=== PATIENT | female | born 1975 | race American Indian/Alaskan Native ===

== ENCOUNTER 2017-10-08 08:21 | Day surgery (SDC) | payer MEDICARE ==
[2017-10-08] MEDS ORDERED: NACL 0.9% 1000 ML 1,000 ML ONE (08:30)
[2017-10-08] MEDS ORDERED: NACL 0.9% 1000 ML 1,000 ML IV SCH (09:00)
[2017-10-08] MEDS ORDERED: HumuLIN R ONE (09:35)
--- NOTE | 2017-10-08 09:59 | Anesthesia Day of Surgery ---
Anesthesia Day of Surgery - Day of Surgery Patient Examined: Yes Patient H&P Reviewed: Yes Patient is NPO: Yes
--- NOTE | 2017-10-08 10:00 | Anesthesia Consultation ---
Anesthesia Consult and Med Hx Date of service: 10/08/17 - Airway Anesthetic Teeth Evaluation: Poor ROM Head & Neck: Adequate Mental/Hyoid Distance: Adequate Mallampati Class: Class III Intubation Access Assessment: Possibly Difficult - Pulmonary Exam CTA: Yes - Cardiac Exam Cardiac Exam: RRR - Pre-Operative Health Status ASA Pre-Surgery Classification: ASA3 Proposed Anesthetic Plan: General - Pulmonary Hx Smoking: No - Cardiovascular System Hx Hypertension: Yes - Central Nervous System Hx Psychiatric Problems: No - Other Systems Hx Cancer: No
[2017-10-08] MEDS ORDERED: DIPRIVAN 10 MG/ML IV ONE ×3 (10:22)
[2017-10-08] MEDS ORDERED: WATER FOR IRRIG STERILE IR ONE (10:44)
--- NOTE | 2017-10-08 10:45 | Short Stay Summary ---
Short Stay Documentation Date of service: 10/08/17 Narrative H&P: The patient presents for colonoscopy for FH of colon cancer, mother. No prior studies. - History Past Medical History: diabetes, hypertension, other (obesity, lupus) Past Surgical History: Social history: no significant social history - Allergies and Medications Current Medications: Allergies No Known Allergies Allergy (Unverified 10/08/17 08:21) Active Medications Sodium Chloride (Nacl 0.9% 1000 Ml) 1,000 mls @ 50 mls/hr IV DIRECT RAJI Last Admin: 10/08/17 10:33 Dose: 500 mls - Physical exam General appearance: no acute distress, well-nourished, obese Integumentary: no rash, no growths, no abnormal pigmentation HEENT: Atraumatic, PERRLA, EOMI, Mucous membr. moist/pink Lungs: Clear to auscultation, Normal air movement Breasts: deferred Heart: Regular rate, Normal S1, Normal S2, No murmurs Gastrointestinal: normoactive bowel sounds, no tenderness, no distended, no masses, no organomegaly, no hepatomegaly, no splenomegaly, obese Female Genitourinary: deferred Rectal Exam: normal exam-external/orifice, normal rectal tone Extremities: no ischemia, pulses intact, pulses symmetrical, No edema, normal temperature, normal color Neurological: Normal gait, Normal speech, Strength at 5/5 X4 ext, Normal tone, Sensation intact, Cranial nerves 3-12 NL - Brief post op/procedure progress note Date of procedure: 10/08/17 Findings: see dictated report Estimated blood loss: none Pathology: none Condition: stable - Disposition Condition at discharge: Good - Discharge Diagnoses (1) Family history of colon cancer in mother Status: Acute Short Stay Discharge Plan Activity: other (no driving for 24 hours) Weight Bearing Status: Full Weight Bearing Diet: regular Follow up with: DORY MENDOZA MD [Other] - 7 Days
--- NOTE | 2017-10-08 10:47 | Operative Report ---
Operative Report Operative Report: Date of procedure: 10/08/2017 Preprocedure diagnosis: FAMILY HISTORY OF COLON CANCER-MOTHER Post procedure diagnosis: Normal study Procedure: Colonoscopy to the cecum Endoscopist: Dr. Paredes Anesthesia: Monitored anesthesia care per anesthesia department Estimated blood loss: 0 Medications: Monitored anesthesia care. See separate report by anesthesia for details. After careful discussion of the nature and purpose of the procedure as well as details of the technique risks benefits and alternatives the patient gave consent. Please see recent history and physical from the office. The patient was placed in the left lateral decubitus position and medicated per anesthesia. A rectal exam was performed sphincter tone was normal there were no masses palpable. The [employer] 570 scope was passed transanally and advanced under continuous direct vision without difficulty to the cecum. The colon was well prepared. The cecum was normal. The ascending colon was normal and on forward and retroflexed views. The transverse colon, descending colon, and sigmoid colon were normal. The rectum was normal on forward and retroflexed views. The procedure was well-tolerated overall and the patient was observed in recovery. Conclusions: Normal colonoscopy to the cecum. Plan: Repeat colonoscopy in 5 years Signed electronically: Eliel Paredes M.D.
[2017-10-08] MEDS ORDERED: XYLOCAINE MPF 2% ONE (11:00)
[2017-10-08 11:09] VITALS: BP 124/82
--- NOTE | 2017-10-08 12:05 | Post Anesthesia Evaluation ---
- Post Anesthesia Evaluation Patient Participated: Yes Airway Patent: Yes Stable Respiratory Function: Yes Nausea/Vomiting: No Temp > 96.8F: Yes Pain Manageable: Yes Adequeate Hydration: Yes Anesthesia Complications: No
== END 2017-10-08 08:22 | disposition home or self-care (01) ==
LOC: GIO 08:21
PROVIDERS: ATTEND Internal Medicine Gastroenterology
DX: Z12.11 Encounter for screening for malignant neoplasm of colon (principal); I10 Essential (primary) hypertension; M32.9 Systemic lupus erythematosus, unspecified; E11.9 Type 2 diabetes mellitus without complications; E66.9 Obesity, unspecified; Z98.890 Other specified postprocedural states; Z79.899 Other long term (current) drug therapy; Z80.0 Family history of malignant neoplasm of digestive organs
CPT/HCPCS: 82962; G0105; J2704; J7030; J1815

== ENCOUNTER 2017-12-10 10:34 | Emergency (ER) | payer MEDICAID ==
[2017-12-10] MEDS ORDERED: REGLAN IV ONE (11:09)
[2017-12-10] MEDS ORDERED: NACL 0.9% 500 ML 500 ML IV ONE (11:09)
--- NOTE | 2017-12-10 11:12 | Emergency Department Report ---
ED General Adult HPI - General Chief complaint: Nausea/Vomiting/Diarrhea Stated complaint: N/V/ HIGH BLOOD SUGAR Time Seen by Provider: 12/10/17 10:57 Source: patient, EMS (ems notes not available at time of chart dictation), RN notes reviewed Mode of arrival: Stretcher Limitations: No Limitations - History of Present Illness Initial comments: This is a 42-year-old female who is unknown to this provider previously. Her primary care doctor is at the [facility]. Past medical history includes diabetes with a heat recent hemoglobin A1c of 11, lupus, hypertension and obesity. She presents to the ER with a complaint of nontraumatic dizziness and generalized weakness. She describes a sensation of room flipping and spinning, mild frontal headache which is not sudden or thunderclap in nature, and a few episodes of nonbloody, nonbilious emesis. She denies focal extremity weakness, numbness, bladder or bowel retention or incontinence, and abdominal pain. She also denies urinary symptoms. Her symptoms are improved after she is given Zofran in the field by EMS. -: Gradual Severity scale (0 -10): 0 Consistency: constant Improves with: movement Worsens with: movement Associated Symptoms: headaches, loss of appetite, malaise, nausea/vomiting, weakness. denies: chest pain, cough, diaphoresis, fever/chills, rash, seizure - Related Data Previous Rx's Medication Instructions Recorded Last Taken Type Famotidine [Pepcid] 20 mg PO QDAY #30 tablet 12/10/17 Unknown Rx Magnesium Oxide [Mgo] 400 mg PO QDAY #10 tablet 12/10/17 Unknown Rx Metoclopramide [Reglan] 10 mg PO QID PRN #30 tablet 12/10/17 Unknown Rx Promethazine [Phenergan SUPPOS] 50 mg MT Q6HR PRN #30 supp.rect 12/10/17 Unknown Rx Allergies Allergy/AdvReac Type Severity Reaction Status Date / Time No Known Allergies Allergy Unverified 10/08/17 08:21 ED Review of Systems ROS: Stated complaint: N/V/ HIGH BLOOD SUGAR Other details as noted in HPI Comment: All other systems reviewed and negative ED Past Medical Hx - Past Medical History Previous Medical History?: Yes Hx Hypertension: Yes Hx Diabetes: Yes Additional medical history: Hx: Lupus - Social History Smoking Status: Never Smoker Substance Use Type: None - Medications Home Medications: Home Medications Medication Instructions Recorded Confirmed Last Taken Type Famotidine [Pepcid] 20 mg PO QDAY #30 tablet 12/10/17 Unknown Rx Magnesium Oxide [Mgo] 400 mg PO QDAY #10 tablet 12/10/17 Unknown Rx Metoclopramide [Reglan] 10 mg PO QID PRN #30 tablet 12/10/17 Unknown Rx Promethazine [Phenergan SUPPOS] 50 mg MT Q6HR PRN #30 supp.rect 12/10/17 Unknown Rx ED Physical Exam - General Limitations: No Limitations General appearance: alert, in no apparent distress, obese - Head Head exam: Present: atraumatic, normocephalic - Eye Eye exam: Present: normal appearance, PERRL, EOMI. Absent: nystagmus Pupils: Present: other (visual acuity intact to finger counting, color perception, reading at a close distance) - ENT ENT exam: Present: normal exam, normal orophraynx, mucous membranes moist, TM's normal bilaterally, normal external ear exam - Neck Neck exam: Present: normal inspection, full ROM, other (no carotid bruits noted) . Absent: tenderness, meningismus - Respiratory Respiratory exam: Present: normal lung sounds bilaterally. Absent: respiratory distress - Cardiovascular Cardiovascular Exam: Present: regular rate, normal rhythm, normal heart sounds. Absent: bradycardia, tachycardia, irregular rhythm, systolic murmur, diastolic murmur, rubs, gallop - GI/Abdominal GI/Abdominal exam: Present: soft, normal bowel sounds. Absent: distended, tenderness, guarding, rebound, rigid, pulsatile mass - Extremities Exam Extremities exam: Present: normal inspection, full ROM, normal capillary refill , other (2+ pulses noted in the bilateral upper, lower extremities. Compartments soft. No long bony tenderness. The pelvis is stable.). Absent: pedal edema, joint swelling, calf tenderness - Back Exam Back exam: Present: normal inspection, full ROM. Absent: tenderness, CVA tenderness (R), paraspinal tenderness, vertebral tenderness - Neurological Exam Neurological exam: Present: alert (normal [id number]. No visual field cuts on direct confrontation. No past pointing. Negative pronator drift.), oriented X3, CN II-XII intact, other (Extraocular movements intact. Tongue midline. No facial droop. Facial sensation intact to light touch in the V1, V2 , V3 distribution bilaterally. 5 and 5 strength in 4 extremities.. Sensation is intact to light touch in 4 extremities.). Absent: motor sensory deficit - Psychiatric Psychiatric exam: Present: normal affect, normal mood - Skin Skin exam: Present: warm, dry, intact, normal color. Absent: rash ED Course Vital Signs 12/10/17 12/10/17 12/10/17 10:45 10:46 11:00 Temperature 98.2 F Pulse Rate 85 Respiratory 17 Rate Blood Pressure 149/78 149/78 Blood Pressure 149/78 [Left] O2 Sat by Pulse 94 96 97 Oximetry 12/10/17 12/10/17 12/10/17 11:16 11:30 11:46 Temperature Pulse Rate Respiratory Rate Blood Pressure 149/83 149/78 154/92 Blood Pressure [Left] O2 Sat by Pulse 97 98 96 Oximetry 12/10/17 12/10/17 12/10/17 12:01 12:16 12:31 Temperature Pulse Rate Respiratory Rate Blood Pressure 137/60 158/90 156/87 Blood Pressure [Left] O2 Sat by Pulse 95 97 97 Oximetry - Reevaluation(s) Reevaluation #1: 12/10/17 12:46 Differential diagnosis, including but not limited to: Hyperglycemia, diabetic ketoacidosis, hyperosmolar state, vertebral basilar insufficiency, gastroparesis Assessment and plan: 42-year-old female with complaint of nausea vomiting, and nonspecific weakness. Her neurologic examination is nonfocal. NIH score is 0. She will be treated with IV fluids and antiemetic medication. CT scan of the head, CT angiogram of the head and neck pending. Reevaluation #2: 12/10/17 12:48 Laboratory studies indicates hyperglycemia without anion gap acidosis. Troponin negative. Low risk by heart score and clinical history. Angiogram pending. Reevaluation #3: 12/10/17 15:[address] angiogram of the head was interpreted as negative. The angiogram of the neck was limited secondary to contrast extravasation. The IV was personally placed by myself and flushed without difficulty. In addition, the IV was bolused with a test dose of normal saline in the CT scan suite without difficulty. Contrast was then injected without complaint from the patient. On her exam, the patient has no neck pain. The skin is not tense or tender. She is able to walk with a steady gait and has no cerebellar signs. She reports that she feels improved. The patient was instructed that she had inverted and contrast extravasation. She is instructed to keep the area elevated, and to apply warm compresses to the neck. The patient was observed in the ER for over an hour and a half after initial contrast extravasation without significant expansion or compromise. The patient has had no active vomiting since she's been here. She is able to tolerate liquid feedings. She indicates that she is reliable to follow-up in 2 days for repeat examination. 12/10/17 16:06 12/10/17 16:06 - EJ/Peripheral Line Neck R Time Out Performed: Yes Indications: nurses unable to establis Skin Cleansed in Sterile Fashion: Yes Size: 20 Dressing Placed: Tegaderm Patient Tolerated Procedure: other Additional Comments: Initially cannulated left-sided external jugular, this was complicated by hematoma, and the catheter was removed. Right-sided external jugular vein was catheterized by myself with 1 attempt, flushed well, no complications. Employed typical aseptic technique. ED Medical Decision Making - Lab Data Result diagrams: 12/10/17 11:14 12/10/17 11:14 Vital Signs 12/10/17 12/10/17 12/10/17 10:45 10:46 11:00 Temperature 98.2 F Pulse Rate 85 Respiratory 17 Rate Blood Pressure 149/78 149/78 Blood Pressure 149/78 [Left] O2 Sat by Pulse 94 96 97 Oximetry 12/10/17 12/10/17 11:16 11:30 Temperature Pulse Rate Respiratory Rate Blood Pressure 149/83 149/78 Blood Pressure [Left] O2 Sat by Pulse 97 98 Oximetry Lab Results 12/10/17 12/10/17 12/10/17 Range/Units 11:14 11:14 11:14 WBC 9.5 (4.5-11.0) K/mm3 RBC 4.84 (3.65-5.03) M/mm3 Hgb 12.0 (10.1-14.3) gm/dl Hct 36.2 (30.3-42.9) % MCV 75 L (79-97) fl MCH 25 L (28-32) pg MCHC 33 (30-34) % RDW 14.7 (13.2-15.2) % Plt Count 254 (140-440) K/mm3 PT 12.9 (12.2-14.9) Sec. INR 0.93 (0.87-1.13) APTT 27.5 (24.2-36.6) Sec. VBG pH (7.320-7.420) Sodium 135 L (137-145) mmol/L Potassium 4.1 (3.6-5.0) mmol/L Chloride 94.1 L (98-107) mmol/L Carbon Dioxide 25 (22-30) mmol/L Anion Gap 20 mmol/L BUN 9 (7-17) mg/dL Creatinine 0.6 L (0.7-1.2) mg/dL Estimated GFR > 60 ml/min BUN/Creatinine Ratio 15 % Glucose 341 H (65-100) mg/dL POC Glucose (70-105) Calcium 9.1 (8.4-10.2) mg/dL Magnesium 1.60 L (1.7-2.3) mg/dL Total Bilirubin 0.30 (0.1-1.2) mg/dL AST 7 (5-40) units/L ALT 8 (7-56) units/L Alkaline Phosphatase 95 (35-129) units/L Troponin T < 0.010 (0.00-0.029) ng/mL Total Protein 7.5 (6.3-8.2) g/dL Albumin 3.7 L (3.9-5) g/dL Albumin/Globulin Ratio 1.0 % Lipase 14 (13-60) units/L HCG, Quant (0-4) mIU/mL 12/10/17 12/10/17 12/10/17 Range/Units 11:14 11:20 11:43 WBC (4.5-11.0) K/mm3 RBC (3.65-5.03) M/mm3 Hgb (10.1-14.3) gm/dl Hct (30.3-42.9) % MCV (79-97) fl MCH (28-32) pg MCHC (30-34) % RDW (13.2-15.2) % Plt Count (140-440) K/mm3 PT (12.2-14.9) Sec. INR (0.87-1.13) APTT (24.2-36.6) Sec. VBG pH 7.359 (7.320-7.420) Sodium (137-145) mmol/L Potassium (3.6-5.0) mmol/L Chloride (98-107) mmol/L Carbon Dioxide (22-30) mmol/L Anion Gap mmol/L BUN (7-17) mg/dL Creatinine (0.7-1.2) mg/dL Estimated GFR ml/min BUN/Creatinine Ratio % Glucose (65-100) mg/dL POC Glucose 325 H (70-105) Calcium (8.4-10.2) mg/dL Magnesium (1.7-2.3) mg/dL Total Bilirubin (0.1-1.2) mg/dL AST (5-40) units/L ALT (7-56) units/L Alkaline Phosphatase (35-129) units/L Troponin T (0.00-0.029) ng/mL Total Protein (6.3-8.2) g/dL Albumin (3.9-5) g/dL Albumin/Globulin Ratio % Lipase (13-60) units/L HCG, Quant < 2 (0-4) mIU/mL - EKG Data -: EKG Interpreted by Me EKG shows normal: sinus rhythm, axis, intervals, QRS complexes, ST-T waves - EKG Data When compared to previous EKG there are: previous EKG unavailable - Radiology Data Radiology results: pending Critical care attestation.: If time is entered above; I have spent that time in minutes in the direct care of this critically ill patient, excluding procedure time. ED Disposition Clinical Impression: History of nausea and vomiting Disposition: DC- TO HOME OR SELFCARE Is pt being admited?: No Does the pt Need Aspirin: No Condition: Stable Instructions: Acute Nausea and Vomiting (ED) Additional Instructions: Take the nausea medication as needed/directed. Apply warm compresses to the neck. Please note that IV contrast and the CT scan did leak from the IV into the connective tissues of the neck. This will typically improve on its own, but the patient should apply warm compresses at least once an hour, and keep the head elevated for the next 6-8 hours. Take the pain medication, nausea medication as needed/directed. Follow-up with her primary care doctor or return to the ER for recheck in 2 days. Please return to the ER right away with new pain, worsened pain, migration of pain, fevers, chills, lethargy, irritability, projectile vomiting, change in mental status, confusion, inability to tolerate liquid feeds. Referrals: PRIMARY CAREMD [Primary Care Provider] - 3-5 Days SANTI ARRIOLA MD [Staff Physician] - 3-5 Days [facility] [Provider Group] - 3-5 Days
[2017-12-10 11:34] LABS: Hematocrit 36.2 % (30.3-42.9); Mean Corpuscular HGB Conc 33 % (30-34); Mean Corpuscular Volume 75 fl (79-97); Platelet Count 254 K/mm3 (140-440); Red Blood Count 4.84 M/mm3 (3.65-5.03); Red Cell Distribution Width 14.7 % (13.2-15.2)
[2017-12-10 11:35] LABS: Mean Corpuscular Hemoglobin 25 pg (28-32)
[2017-12-10 11:47] LABS: INR 0.93 (0.87-1.13); Partial Thromboplastin Time 27.5 Sec. (24.2-36.6)
[2017-12-10 12:03] LABS: Alanine Aminotransferase 8 units/L (7-56); Albumin 3.7 g/dL (3.9-5); BUN/Creatinine Ratio 15; Blood Urea Nitrogen 9 mg/dL (7-17); Calcium 9.1 mg/dL (8.4-10.2); Hemolysis Index 1; Lipase 14 units/L (13-60)
[2017-12-10] MEDS ORDERED: HumuLIN R IV ONE (12:47)
[2017-12-10] MEDS ORDERED: MAGNESIUM SULFATE 2GM/50ML 2 GM/50 ML BAG IV ONE (13:00)
--- NOTE | 2017-12-10 15:35 | Cat Scan Report ---
CT HEAD WITHOUT CONTRAST: HISTORY: Dizzy, weak. TECHNIQUE: Sequential 2.5mm CT images. COMPARISON: none. FINDINGS: Cerebral Parenchyma: Within normal limits. Cerebellum: Within normal limits. Brainstem: Within normal limits. Ventricles: Normal. Sella: Normal. Extra-axial spaces: Normal. Basal Cisterns: Normal. Intracranial Hemorrhage: None. Midline Shift: None. Calvarium: Normal. Sinuses: Normal. Mastoid Air Cells: Normal. Visualized Orbits: Normal. IMPRESSION: Cranial CT scan within normal limits.
--- NOTE | 2017-12-10 15:36 | Cat Scan Report ---
CTA HEAD: HISTORY: Nausea and vomiting, dizzy. TECHNIQUE: Helical CT images after IV contrast with 0.625mm reformations. Sagittal and coronal reformats. Rotational MIP images. 3D volume rendering technique. FINDINGS: The arterial structures of the anterior and posterior circulations are patent throughout. No evidence for stenosis, occlusion or aneurysm. IMPRESSION: Unremarkable CTA head.
--- NOTE | 2017-12-10 15:38 | Cat Scan Report ---
CTA NECK: HISTORY: Nausea and vomiting, dizzy. TECHNIQUE: Helical CT following IV contrast. Sagittal and coronal reformatted images. 3D volume rendering technique. Stenosis was calculated using NASCET criteria. FINDINGS: Very limited examination due to extravasation of contrast agent in the right side of the neck. The right common carotid artery is obscured. No hemodynamically significant stenosis is identified in the remaining right carotid system or left carotid system. The vertebral arteries are poorly evaluated on this exam. IMPRESSION: Essentially suboptimal CTA of the neck. Extravasation of contrast in the right side of the neck severely obscures detail. Grossly, no hemodynamically significant stenosis or dissection is identified.
[2017-12-10] MEDS ORDERED: TORADOL IV ONE (16:06)
[2017-12-10 17:20] VITALS: BP 133/72
== END 2017-12-10 17:00 | disposition home or self-care (01) ==
LOC: ED 10:34
DX: R11.2 Nausea with vomiting, unspecified (principal); I10 Essential (primary) hypertension; E11.65 Type 2 diabetes mellitus with hyperglycemia; M32.9 Systemic lupus erythematosus, unspecified
CPT/HCPCS: 36415; 70450; 70496; 70498; 80053; 82550; 82805; 82962; 83690; 83735; 84484; 84702; 85027; 85610; 85730; 93005; 93010; 96365; 96375; 99285; J1885; J2765; J3475; J7040; Q9967; J1815

== ENCOUNTER 2021-08-22 08:31 | Outpatient (CLI) | payer MEDICAID ==
--- NOTE | 2021-08-22 09:42 | XRay Report ---
PELVIS ONE VIEW INDICATION: M25.559 PAIN IN UNSPECIFIED HIP. Left hip pain, previous injury to left hip COMPARISON: None. IMPRESSION: No acute osseous abnormality or bone lesion is identified. No pelvic diastases. There i s anatomic alignment at both hips with no significant joint pathology. The soft tissues are unremarka ble. Signer Name: Rod Brito Jr, MD Signed: 08/22/2021 9:38 AM Workstation Name: [id number]
== END 2021-08-22 08:32 | disposition home or self-care (01) ==
LOC: XRAY 08:31
PROVIDERS: ATTEND Orthopaedic Surgery
DX: M25.559 Pain in unspecified hip (principal)
CPT/HCPCS: 72170

== ENCOUNTER 2021-12-02 09:58 | Outpatient (CLI) | payer OTHER ==
--- NOTE | 2021-12-02 14:17 | XRay Report ---
HIP 3 VIEW(S) INDICATION / CLINICAL INFORMATION: Z02.71 DISABILTY DETERMINATION COMPARISON: None available. FINDINGS: BONES / JOINT(S): No acute fracture or subluxation. Mild bilateral hip degenerative osteoarthritis wi th mild joint space narrowing and acetabular reactive changes. SOFT TISSUES: No significant abnormality. ADDITIONAL FINDINGS: None. IMPRESSION: 1. Mild degenerative osteoarthritis of the hips without fracture or other acute process. Signer Name: Adolph Lane MD Signed: 12/02/2021 2:12 PM Workstation Name: [id number]
--- NOTE | 2021-12-02 14:18 | XRay Report ---
BILATERAL KNEE 4 VIEW(S) INDICATION / CLINICAL INFORMATION: Z02.71 ENCOUNTER FOR DISABILITY DETERMINATION COMPARISON: None available. FINDINGS: BONES / JOINT(S): No acute fracture or subluxation. Mild bilateral medial compartment joint space monica rowing and small marginal osteophytes. Marginal osteophyte is slightly larger on the left. No other s ignificant degenerative osteoarthritis. SOFT TISSUES: No significant abnormality. ADDITIONAL FINDINGS: None. IMPRESSION: 1. Mild bilateral medial compartmental conventional osteoarthritis without fracture or other acute pr ocess. Signer Name: Adolph Lane MD Signed: 12/02/2021 2:13 PM Workstation Name: [id number]
== END 2021-12-02 09:59 | disposition home or self-care (01) ==
LOC: XRAY 09:58
PROVIDERS: ATTEND Internal Medicine
DX: M16.0 Bilateral primary osteoarthritis of hip (principal); M17.0 Bilateral primary osteoarthritis of knee; M25.762 Osteophyte, left knee; M25.761 Osteophyte, right knee; I10 Essential (primary) hypertension; E11.9 Type 2 diabetes mellitus without complications
CPT/HCPCS: 73521; 73565